=== PATIENT | female | born 1990 | race African-American/Black ===

== ENCOUNTER 2016-12-18 17:12 | Emergency (ER) | payer OTHER ==
[~2016-12-18] VITALS: Ht 162.6 cm; Wt 59.9 kg
[2016-12-18 17:12] VITALS: BP 137/87
[~2016-12-18 17:12] MED LIST: ACETAMINOPHEN-1 EAC1 PO; BACTRIM DS TAB1 EACH PO; CARAFATE 1 GM TA1 G1 PO; DEPO-PROVE150 MG/11; DEPO-PROVER150 MG/M1 IM; DIFLUCAN150 MG PO; FLEXERIL PO; IBUPROFEN 600600 M1 PO; LEVSIN0.125 MG PO; LORTAB 5-325 M1 EACH PO; MACROBID 100 M100 M1 PO; NOHOMEMEDICATIONS; PEPCID20 MG PO; PHENERGAN 25 MG25 M1 PO; PREDNISONE50 MG PO; PROMETHAZINE-C120 ML PO; ZOFRAN4 MG PO; ZPAK PO
[2016-12-18] MEDS ORDERED: CETIRIZINE HCL5 MG PO (17:41)
== END 2016-12-18 18:31 | disposition home or self-care (01) ==
LOC: ER 17:12
DX: H61.23 Impacted cerumen, bilateral (principal); H69.90 Unspecified Eustachian tube disorder, unspecified ear

== ENCOUNTER 2016-12-25 12:45 | Emergency (ER) | payer OTHER ==
[~2016-12-25] VITALS: Ht 165.1 cm; Wt 59.0 kg
[~2016-12-25 12:45] MED LIST changes: +CETIRIZINE HCL5 MG PO
[2016-12-25] MEDS ORDERED: DEPO-PROVER150 MG/M1 IM (13:18)
[2016-12-25] MEDS ORDERED: HYDROXYZINE HCL25 M1 PO (14:13)
[2016-12-25 14:20] VITALS: BP 109/68
== END 2016-12-25 14:20 | disposition home or self-care (01) ==
LOC: ER 12:45
DX: F43.22 Adjustment disorder with anxiety (principal); G47.8 Other sleep disorders; F10.99 Alcohol use, unspecified with unspecified alcohol-induced disorder

== ENCOUNTER 2017-01-02 15:28 | Emergency (ER) | payer OTHER ==
[~2017-01-02] VITALS: Ht 165.1 cm; Wt 61.2 kg
[~2017-01-02 15:28] MED LIST changes: +HYDROXYZINE HCL25 M1 PO
[2017-01-02 16:19] VITALS: BP 105/79
== END 2017-01-02 16:19 | disposition home or self-care (01) ==
LOC: ER 15:28
DX: J30.89 Other allergic rhinitis (principal); T50.901A Poisoning by unspecified drugs, medicaments and biological substances, accidental (unintentional), initial encounter; Y92.9 Unspecified place or not applicable